=== PATIENT | female | born 1990 | race Caucasian/White ===

== ENCOUNTER 2017-01-06 19:25 | Outpatient (CLI) | payer OTHER, MEDICAID ==
[2017-01-06 21:58] VITALS: BP 108/62
[2017-01-06] MEDS ORDERED: LACTATED RINGERS 1,000 ML IV SCH (22:00)
--- NOTE | 2017-01-06 23:45 | Ultrasound Report ---
FINAL REPORT EXAM: US OB LIMITED HISTORY: rule out abruption COMPARISONS: None. FINDINGS: Transabdominal grayscale, color Doppler and M-mode 3rd trimester/placenta ultrasound Single living intrauterine with recorded cardiac activity of 148 beats per minute. Posterior placenta. No retroplacental hematoma identified. No identified cystic degeneration/cyst formation at the placenta urinary bladder interface. Amniotic fluid volume is subjectively normal. IMPRESSION: No sonographic evidence of placental abruption at this time. If there is persistent concern, consider perinatology consultation and repeat ultrasound.
== END 2017-01-07 03:30 | disposition home or self-care (01) ==
LOC: TRG 19:25 → LD 20:39 → TRG 01-07 03:30
PROVIDERS: ATTEND Obstetrics & Gynecology
DX: O26.893 Other specified pregnancy related conditions, third trimester (principal); V89.2XXA Person injured in unspecified motor-vehicle accident, traffic, initial encounter; Z3A.32 32 weeks gestation of pregnancy; Y93.89 Activity, other specified; Y92.89 Other specified places as the place of occurrence of the external cause; Y99.8 Other external cause status
CPT/HCPCS: 76815; J7120